=== PATIENT | female | born 1985 | race Caucasian/White ===

== ENCOUNTER → 2017-05-17 | Outpatient (CLI) | payer BC ==
[~2017-05-17] MED LIST: ERYTHROMYCIN B500 MG PO; FLINTSTONES1 CTB PO; KEFLEX 500MG.500 MG PO; MOTRIN 400MG.400 MG PO; MUCINEX1200 MG PO; Sudafed30 MG PO
== END ==
LOC: LAB 17:22
DX: N39.0 Urinary tract infection, site not specified (principal)

== ENCOUNTER → 2017-06-21 | Outpatient (CLI) | payer BC | LOC: LAB 18:51 | DX: Z34.80 Encounter for supervision of other normal pregnancy, unspecified trimester (principal) ==

== ENCOUNTER 2017-07-19 05:14 | Inpatient (IN) | payer BC ==
[~2017-07-19] VITALS: Ht 162.6 cm; Wt 114.3 kg
[~2017-07-19 05:14] MED LIST changes: +[UNRECOGNIZED DRUG - OTHER] PO
--- OUTSIDE RECORDS SUMMARY | 2017-07-19 05:17 | External Medical Summary Rpt | CCD ---
Author Author , ANNALISA FANG Address Unknown Phone [email or web address] Purpose Continuity of Care Document - 07-11-2017 through 2016 Problems Code Diagnosis DOS Provider Status E66.9 Obesity, unspecified F39 Unspecified mood (affective) disorder K21.9 Gastro-esop hageal reflux disease without esophagitis M54.5 Low back pain O20.0 Threatened Z13.89 Encounter for screening for other disorder Z32.01 Encounter for test, result positive Z3A.08 8 weeks gestation of Z72.0 Tobacco use Results Labs Lab Lab Date Result Refere Interp Status Commen Order Detail nces retati t Range on Urinalysis with microscopy (07-11-2017 10:45) Comment: Collected by nurse? Y Comment: Hold specimen in OE? N Bacteri OCC OCC O complet a 017 L ed detecti 10:45 on in urine sedimen t by Urine = NONE O complet leukocy 017 wbc/hpf ed miranda 10:45 count (number /volume ) Urine 0.2 0.2 NEG complet urobili 017 L ed nogen 10:45 E.U./dL detecti on by test str [place] 3-5 3-5 0-5 complet s 017 L ed epithel 10:45 #/hpf ial cells detecti on in u Urine = 1.010 1.005-1 complet specifi 017 .030 ed c 10:45 gravity measure ment Erythro NONE 0 complet cytes 017 NONE L ed detecti 10:45 rbc/hpf on in urine sedimen t Urine = NEG complet protein 017 NEGATIV ed 10:45 E mg/dL measure ment by automat ed t Urine = 7.5 5.0-8.5 complet pH 017 ed 10:45 Urine 10-30-2 NEGATIV NEG complet nitrite 017 E ed 10:45 NEGATIV detecti E L on by test strip Mucus NEGATIV NEG complet detecti 017 E ed on in 10:45 NEGATIV urine E L sedimen t by lig Urine NEGATIV NEG complet ketones 017 E ed 10:45 NEGATIV detecti E L on by mg/dL automat ed miranda Glucose = NEG complet ur 017 NEGATIV ed test 10:45 E strip Urine YELLOW YELLOW complet color 017 YELLOW ed 10:45 L Urine NEGATIV NEG complet blood 017 E ed detecti 10:45 NEGATIV on E L Urine NEGATIV NEG complet total 017 E ed bilirub 10:45 NEGATIV in E L detecti on by test Amorpho 1+ 1+ L NONE complet us 017 ed sedimen 10:45 t detecti on in urine se Urine SL CLEAR complet appeara 017 CLOUDY ed nce 10:45 SL determi CLOUDY nation L
--- OUTSIDE RECORDS SUMMARY | 2017-07-19 05:17 | External Medical Summary Rpt | CCD ---
Author Author , ANNALISA FANG Address Unknown Phone [email or web address] Purpose Continuity of Care Document - 07-11-2017 [...]
--- OUTSIDE RECORDS SUMMARY | 2017-07-19 05:17 | External Medical Summary Rpt | CCD ---
Author Author [employer] Address Unknown Phone Unavailable Purpose Continuity of Care Document - through 2016
--- OUTSIDE RECORDS SUMMARY | 2017-07-19 05:18 | External Medical Summary Rpt ---
Author Author ANNALISA Multani, [employer] Address Unknown Phone Unavailable
--- OUTSIDE RECORDS SUMMARY | 2017-07-19 05:18 | External Medical Summary Rpt | CCD ---
Demographics Preferred Language Uzbek Marital Status Unknown Buddhist Affiliation Unknown Race Unknown Ethnic Group Unknown Author Author , ANNALISA FANG Address Unknown Phone Immunization Unable to retrieve immunization data due to connection failure with Immunization Registry. Please try again later.
--- OUTSIDE RECORDS SUMMARY | 2017-07-19 05:18 | External Medical Summary Rpt | CCD ---
Demographics Preferred Language Occitan Marital Status Unknown Mormonism Affiliation Unknown Race Unknown Ethnic Group Unknown Author Author , ANNALISA FANG Address Unknown Phone Immunization Unable to retrieve immunization data due to connection failure with Immunization Registry. Please try again later.
[2017-07-19 06:16] VITALS: BP 126/60
[2017-07-19 07:22] VITALS: BP 130/68
[2017-07-19 07:26] LABS: ABO BLOOD TYPE O; RH BLOOD TYPE POSITIVE
[2017-07-19 07:29] LABS: HEMOGLOBIN 12.2 g/dL (12.2-16.2); LYMPH # 2.4 K/mm3 (0.7-4.5); LYMPH % 28.2 % (10-50.0)
--- NOTE | 2017-07-19 08:03 | LABOR NOTE ---
Laboring Subjective Subjective Date 07/19/17 Time 0801 Subjective: Pt is having irregular contractions Laboring Objective Objective NST: Reactive Contractions: infrequent Cervical dilation: 3-4 Effacement: 75% Station: -2 Membranes are: Artificially ruptured (with clear fluid) Fetus monitoring? Yes Type: Internal Comment: IUPC and clip applied. Laboring Assessment Assessment Progressing? Yes Cephalopelvic disproportion? No Problem List: 1. Delivery normal Status Acute Laboring Plan Plan Anethesia for epidural? No Continue to labor down? Yes Plan for ? No Continue to monitor? Yes Start pushing? No at 0802
--- NOTE | 2017-07-19 11:30 | Delivery Note ---
Delivery note Delivery date: 07/19/17 Delivery time: 1111 Anesthesia: None Was labor medically induced? No Gestational age in weeks: 39 weeks Days: 1 day Delivery prior to 39 weeks? No Sex: female score at one minute: 8 at 5 minutes: 9 Type of suction: bulb AF: Clear fluid LAC or MLE: LAC (1st degree) Delivery procedure: Normal Delivery Delivery of placenta: spontaneous Clinical note She is a 31-year-old 4 para 2 aborta 1 who is 39 and 1 weeks gestational age. She was feeling pressure and having occasional contractions so we elected to augment her labor. She started on IV oxytocin and had her membranes ruptured. Under labor epidural she progressed to full dilation and delivered spontaneously a liveborn female child at 11:11 AM on the morning of July 19, 2017. On delivery the head the anterior shoulder rapidly delivered followed by the rest infant's body atraumatically. The baby cried spontaneously. The oropharynx and nasopharynx were bulb suctioned. The cord was clamped and cut and the was placed on the mother's abdomen for further care. The nurses assigned Apgars of 8 at 1 minute and 9 at 5 minutes. We then obtained cord blood as well as cord pH. Using gentle traction on the cord and countertraction on the fundus were able to easily deliver the placenta intact. It had a normal three-vessel cord. She had a small first-degree perineal laceration that was first infiltrated with 10 mL of 1 percent Xylocaine and a single [id number] 3-0 Vicryl Rapide suture was used to reapproximate tissues. She has O positive blood, she is rubella immune and was group B streptococcus negative. She plans to breast-feed. Estimated blood loss was 400 mL. at 1134
[2017-07-19 20:15] VITALS: BP 143/73
[2017-07-20 06:42] LABS: HEMOGLOBIN 11.2 g/dL (12.2-16.2)
[2017-07-20 07:45] VITALS: BP 117/72
--- NOTE | 2017-07-20 09:44 | ACUTE CARE PROGRESS NOTE (QUA) ---
Progress Notes Subjective Date 07/20/17 Time 0942 Patient/family reports: feeling better, no complaints Objective Findings Last VS-Temp:98.1 B/P:117/72 Pulse:79 Resp:16 SaO2: Last weight lbs:252 oz:0 K.307 Method:Stated Laboratory Tests 07/20/17 0630: Hgb 11.2 L, Hct 32.8 L 07/19/17 1125: Cord Blood pH 7.36 Exam General appearance: normal appearance, alert, awake, no acute distress Reviewed: vital signs, lab results Assessment/Plan Problem List 1. Delivery normal Status: Acute Patient condition Improving, Stable Plan: continue current care This inpt stay is expected to cross 2 MNs from start of care Yes Comments: She is doing very well this morning. We'll plan to send her home tomorrow. at 0943
[2017-07-20 20:30] VITALS: BP 143/70
[2017-07-21 08:45] VITALS: BP 124/69
--- NOTE | 2017-07-21 11:31 | Discharge Summary ---
Discharge Summary Admission date: 07/19/17 Discharge date: 07/21/17 Discharge diagnoses: Term , spontaneous vaginal delivery Clinical note: She is a 31-year-old 4 now para 3 who was 39 and 1 weeks gestational age. She is having irregular contractions and as result of that was admitted for augmentation. Course in hospital: She was started on IV oxytocin and had her membranes ruptured. She progressed to full dilation and delivered spontaneously a liveborn female child at 11:11 AM on the morning of July 19, 2017. She was a liveborn child weighing 7 lbs. 12 oz. and she was 19-1/4 inches long. She had Apgars of 8 at 1 minute and 9 at 5 minutes. She has done well and has remained afebrile throughout her hospitalization. She is eating and drinking and ambulating. She is breast- feeding. She has O positive blood, she is rubella immune and was group B streptococcus negative. Laboratory Tests 07/20/17 0630: Hgb 11.2 L, Hct 32.8 L 07/19/17 1125: Cord Blood pH 7.36 07/19/17 0540: MCH 31.7 H 07/19/17 0540: WBC 8.5, RBC 3.85 L, Hgb 12.2, Hct 35.0 L, MCV 90.9, RDW 13.4, Plt Count 281, MPV 8.3, Gran % 65.5, Gran # 5.6, Lymphocytes % 28.2, Monocytes % 4.9, Eosinophils % 1.2, Basophils % 0.2, Lymphocytes # 2.4, Monocytes # 0.4, Eosinophils # 0.1, Basophils # 0.0, PUBS MCHC 34.8, Antibody Screen NEGATIVE, Miscellaneous Test POSITIVE Plans for ongoing care: She is discharged home to follow me in approximately 2 weeks' time. Discharge medications She will continue with her vitamins and iron. She will take over-the- counter analgesics as required. DC/follow-up instructions She was given the usual instructions with respect to limiting her activity, driving and sexual activity. Condition at discharge Stable and improved at 1130
== END 2017-07-21 11:18 | disposition home or self-care (01) | DRG 775 ==
LOC: OB 05:14
PROVIDERS: Nurse Practitioner Obstetrics & Gynecology
PROC: 0HQ9XZZ Repair Perineum Skin, External Approach (ICD-10-PCS; principal; 2017-07-19)
PROC: 10E0XZZ Delivery of Products of Conception, External Approach (ICD-10-PCS; principal; 2017-07-19)
DX: O70.0 First degree perineal laceration during delivery (principal); Z37.0 Single live birth; Z3A.39 39 weeks gestation of pregnancy
CPT/HCPCS: C1758; J0595